=== PATIENT | female | born 1980 | race Caucasian/White ===

== ENCOUNTER 2021-10-08 11:43 | Inpatient (IN) ==
[2021-10-08] MEDS ORDERED: *HR* LORazepam 1 MG TABLET PO ONE (11:59)
[2021-10-08 12:33] LABS: Bacteria,Urine Moderate per hpf (None-Few); Bilirubin,Urine Negative (Negative); Blood,Urine Negative (Negative); Clarity,Urine Turbid (Clear); Color,Urine Yellow (Yellow); Glucose,Urine (UA) Normal (Normal); Ketones,Urine Negative (Negative); Leukocyte Esterase,Urine Large (Negative); Mucus,Urine Few per lpf (None-Few); Nitrite,Urine Positive (Negative); Protein,Urine Trace mg/dL (Neg-Trace); RBC,Urine 0-3 per hpf (0-3); Specific Gravity,Urine 1.015 (1.010-1.025); Squamous Epithelial Cell,Urine Moderate per hpf (None-Few); Urobilinogen,Urine Normal (Normal); WBC,Urine 30-50 per hpf (0-3)
[2021-10-08 12:53] LABS: Basophils # 0.1 K/mcL (0.0-0.2); Basophils % 0.5 %; Eosinophils # 0.1 K/mcL (0.0-0.6); Eosinophils % 0.8 %; Hematocrit 35.9 % (35.3-44.9); Hemoglobin 12.3 g/dL (11.5-15.4); Immature Granulocytes % 0.4 % (0-4); Lymphocytes % 20.9 %; Mean Corpuscular HGB Conc 34.3 g/dL (31.6-35.5); Mean Corpuscular Hemoglobin 30.2 pg (28.0-33.3); Mean Corpuscular Volume 88.2 fL (83.0-100.0); Mean Platelet Volume 11.2 fL (9.4-12.4); Monocytes # 0.8 K/mcL (0.0-1.3); Neutrophils # 6.6 K/mcL (1.6-8.9); Platelet Count 179 K/mcL (140-400); Red Blood Count 4.07 M/mcL (3.82-4.97); Red Cell Distribution Width 13.6 % (11.5-14.5); Segmented Neutrophils % 69.4 %; White Blood Count 9.5 K/mcL (4.3-11.1)
[2021-10-08 13:10] LABS: Acetaminophen < 10 mcg/mL (10-20); BUN/Creatinine Ratio 18 (6-26); Blood Urea Nitrogen 8 mg/dL (6-20); Calcium 8.9 mg/dL (8.6-10.3); Carbon Dioxide 27 mEq/L (23-29); Chloride 106 mEq/L (98-107); Chol/HDL Ratio 2.5 (0-4.9); Cholesterol 161 mg/dL (< 200); Ethanol < 10 mg/dL (Less than 10); Glucose 85 mg/dL (70-105); HDL Cholesterol 64 mg/dL (40-59); LDL Cholesterol,Calculated 79 mg/dL (< 100); Osmolality,Calculated 288 (280-300); Potassium 3.6 mEq/L (3.5-5.1); Salicylate < 2.5 mg/dL (15.0-30.0); Sodium 140 mEq/L (136-145); Triglycerides 90 mg/dL (< 150); eGFR For African Americans > 60 (> 60); eGFR For Non-African Americans > 60 (> 60)
[2021-10-08 13:27] LABS: Amphetamine Screen,Urine Negative ng/mL (Cutoff=1000); Barbiturate Screen,Urine Negative ng/mL (Cutoff=200); Benzodiazepines Screen,Urine Negative ng/mL (Cutoff=200); Cannabinoid Screen,Urine Positive ng/mL (Cutoff = 50); Cocaine Screen,Urine Negative ng/mL (Cutoff= 300); Opiate Screen,Urine Negative ng/mL (Cutoff=300); Phencyclidine Screen,Urine Negative ng/mL (Cutoff=25)
[2021-10-08] MEDS ORDERED: cephALEXin 500 MG CAPSULE PO ONE (14:03)
[2021-10-08 14:06] LABS: Estimated Average Glucose 85 mg/dl; Hemoglobin A1C 4.6 %
[2021-10-08 17:09] LABS: Influenza A PCR Negative (Negative); Influenza B PCR Negative (Negative); Resp. Syncytial Virus PCR Negative (Negative)
[2021-10-08 17:14] LABS: SARS-CoV-2 by PCR (In House) Negative (Negative)
[2021-10-08] MEDS ORDERED: *HR* LORazepam 2 MG/ML VIAL IM PRN (17:46)
[2021-10-08] MEDS ORDERED: hydrOXYzine pamoate 25 MG CAPSULE PO PRN (17:46)
[2021-10-08] MEDS ORDERED: Haloperidol Lactate 5 MG/ML VIAL IM PRN (17:46)
[2021-10-08] MEDS ORDERED: *HR* LORazepam 1 MG TABLET PO PRN (17:46)
[2021-10-08] MEDS ORDERED: haloperidoL 5 MG TABLET PO PRN (17:46)
[2021-10-08] MEDS ORDERED: Mag Hydrox/Al Hydrox/Simeth 30 ML UDC PO PRN (17:46)
[2021-10-08] MEDS ORDERED: MOM Conc 10 ML UD.LIQ PO PRN (17:46)
[2021-10-08] MEDS ORDERED: Acetaminophen 325 MG TABLET PO PRN (17:46)
[2021-10-08] MEDS ORDERED: traZODone 50 MG TABLET PO PRN (17:46)
[2021-10-09] MEDS: ARIPiprazole 5 MG TABLET PO SCH (10:46)
[2021-10-10 08:54] VITALS: BP 102/56; PULSE 81; TEMP 97.9; O2SAT 100
[2021-10-10] MEDS: ARIPiprazole 5 MG TABLET PO SCH (08:54)
== END 2021-10-10 15:05 | disposition home or self-care (01) | DRG 751 ==
LOC: EMEROOARM 11:43 → 1ANU 17:55
PROVIDERS: ADMIT Psychiatry & Neurology Psychiatry; ATTEND Psychiatry & Neurology Psychiatry